=== PATIENT | female | born 1990 | race Caucasian/White ===

== ENCOUNTER 2024-01-20 20:02 | Emergency (ER) | payer SELFPAY ==
[2024-01-20 20:08] VITALS: BP 111/73
--- NOTE | 2024-01-20 20:55 | ED.MUSCINJ ---
HPI-Injury
General
Chief Complaint: Extremity Pain (non-traumatic)
Source: patient
Exam Limitations: none
Time Seen by Provider: 01/20/24 20:29
Nursing documentation reviewed up to this point in time: agreed with
History of Present Illness-Injury
Initial Injury comments:
33-year-old female presents with right foot pain. She rolled her ankle prior to arrival. Painful to ambulate. Denies head injury or loss of consciousness.
Past History
Past History
ED Past Medical History: None; Negative Asthma, HTN, Hypercholesterolemia or [place]
ED Past Surgical History: Other (Hernia)
Social History
Tobacco: Non-smoker
Alcohol: None
Personal:
Living: with family
Musculoskeletal Injury Exam
Musculoskeletal Injury Exam
Right Foot:
Pain with Movement?: Mild
Tender to palpation?: Moderate
Soft tissue swelling?: Moderate
External deformity and angulation?: None
Joint effusion?: Moderate
Contusion?: Moderate
Hematoma-local bleeding into tissue?: Moderate
Strain- Sprain- Tear (Connective tissue injury)?: Mild
Crepitus with movement?: No
Range of motion: Limited
Distal skin color and temperature: normal-warm & good color
Capillary Refill: normal
Phy Exam
General Physical Exam
General Presentation: well appearing
General Skin: warm and dry
General Habitus: normal
Pulmonary Exam
Pulmonary Exam: lungs clear and no respiratory distress
Neurological Exam
Neurological Exam: alert and oriented x3
Musculoskeletal Exam
Musculoskeletal Exam: full ROM, neuro vasc intact and other (See focused physical examination)
Injury Course
Orders/Labs/Results
Orders:
Orders
01/20/24 20:07
Ankle, Right 3 view CR [CR Ankle - Right Min 3 Views *] Urgent
Comment:
Reason For Exam: pain
CR Foot - Right Min 3 Views Urgent
Comment:
Reason For Exam: pain
01/20/24 20:57
boot [Ortho Boot Right- Treatment] ONCE
Short or tall?: Tall
*Critical Care Note
Total Time (30-74mins, 75-104mins- exclusive of procedures): Not Applicable
ED Attending Note
-
Portions of this chart may have been created with voice recognition software.� Occasional wrong word or��sound alike� substitutions may have occurred due to the inherent limitations of voice recognition software.
Discharge Plan
Departure
Patient Disposition: Home (Routine Discharge)
Date of Disposition: 01/20/24
Time of Disposition: 21:12
Patient with high blood pressure during this ER visit?: Yes
Condition: Good
Discharge Problem:
Foot fracture, right
Instructions: Foot Fracture (DC)
Prescriptions:
No Action
pantoprazole [Protonix] 40 mg tablet,delayed release (DR/EC)
40 mg PO DAILY Qty: 10 0RF
Referrals:
Adithya Salamanca MD [Active] - Call in 1-3 days for appt
Activity Restrictions/Additional Instructions:
It was a pleasure meeting you and taking part in your care. We hope for your continued healing and wellness.
Please read discharge instructions in their entirety. However, they are for general education and may not describe your exact diagnosis at discharge. Information on your ER visit and medical conditions were discussed with you along with appropriate
follow up information...
If indicated, please take your medications as instructed and indicated on discharge paperwork.
Please schedule a follow up appointment as directed. Call to schedule an appointment
Please return to the emergency department with ANY change in, persisting, or worsening of symptoms. If any of your symptoms do not improve, or persist, or become more severe within 6-12 hours, please return to the emergency department for further
care.
Please return to the emergency department if you develop a headache, neck pain/stiffness, fever greater than 100.4F, chest pain, shortness of breath, persistent nausea, vomiting, slurred speech, difficulty walking, numbness/tingling, weakness, signs
of infection or any other symptoms that are worrisome to you.
If you have any questions or concerns please do not hesitate to call the Hospital at or E-mail me directly at [email or web address]
Interventions
Interventions:
*Risk Screen - Suicide Last Done: 01/20/24 21:00
*General Assessment Last Done: 01/20/24 21:00
*Neglect/Abuse Screening Last Done: 01/20/24 21:00
ED- Fall Risk Assessment Last Done: 01/20/24 21:00
*ED COVID-19 Vaccine History Last Done: 01/20/24 21:00
*Nursing Disposition Last Done: 01/20/24 22:04
ED-Skin Assessment Last Done: 01/20/24 21:00
ED-Peripheral Vascular Assessment Last Done: 01/20/24 21:00
ED-Musculoskeletal Assessment Last Done: 01/20/24 21:00
Discharge Date and Time
Discharge Date/Time: 01/20/24 22:08
Print Language: COMORAN
== END 2024-01-20 22:08 | disposition home or self-care (01) ==
LOC: EMR 20:02
PROVIDERS: EMERGENCY PHYSICIAN Student in an Organized Health Care Education/Training Program; FAMILY PHYSICIAN Nurse Practitioner Adult Health
DX: S92.901A Unspecified fracture of right foot, initial encounter for closed fracture (principal); S90.31XA Contusion of right foot, initial encounter; X50.1XXA Overexertion from prolonged static or awkward postures, initial encounter
CPT/HCPCS: 99283; 29515; 73610; 73630

== ENCOUNTER → 2024-04-17 13:58 | Emergency (ER) | payer OTHER, SELFPAY ==
[2024-04-17 14:07] VITALS: BP 101/67
--- NOTE | 2024-04-17 14:07 | ED.GENMED ---
ED Provider Triage
<Olivia Estrada PA-C - Last Filed: 04/17/24 14:12>
-
Patient seen by provider in Triage?: Seen in Triage
Attestation: A medical screening examination has been initiated by a qualified medical provider. Based on the assessment performed at this time, it has been determined that an emergent medical condition may exist and the patient has been informed
that further medical evaluation and possible additional diagnostic testing may be needed.
HPI: 33yoF here with RLQ pain x 1 day. Worried about appendicitis. Otherwise asymptomatic. No fevers or urinary symptoms.
GENERAL: Alert , in no apparent distress
EYE: No visual abnormalities.
NECK: Trachea midline
ENT: No visible abnormalities.
LUNGS: No acute respiratory distress
NEUROLOGICAL: Alert and oriented
SKIN: Skin intact. No visible changes.
MUSCULOSKELETAL: Moving extremities normally
PSYCH: Normal and appropriate interaction.
This is a medical evaluation conducted in person to initiate diagnostic evaluation and provide initial therapeutics. Please see further documentation by the treating clinician.
RLQ tenderness on exam. Abdominal labs, HCG, and CT abdomen added.
History of Present Illness
<Olivia Estrada PA-C - Last Filed: 04/17/24 14:12>
General
Chief Complaint: Abdominal Pain
Time Seen by Provider: 04/17/24 15:54
<Lisa Guillen NP - Last Filed: 04/17/24 17:46>
General
Source: patient
Exam Limitations: none
Nursing documentation reviewed up to this point in time: agreed with
History of Present Illness
History of Present Illness:
Patient to ED with complaint of right sided abdominal pain. States pain started last PM, continues today. Denies fever/chills, n/v/d. No urinary symptoms. No prior history of same. Brought self to ED for eval.
Past History
<Olivia Estrada PA-C - Last Filed: 04/17/24 14:12>
Past History
ED Past Medical History: None; Negative Asthma, HTN, Hypercholesterolemia or [place]
ED Past Surgical History: Other (Hernia)
Social History
Tobacco: Non-smoker
Alcohol: None
Personal:
Living: with family
Review of Systems
<Lisa Guillen NP - Last Filed: 04/17/24 17:46>
Review of Systems
Allergies reviewed?: Yes
All Other Systems: ROS reviewed and negative except as documented in HPI and ROS
Constitutional: Reports no symptoms
EENT: Reports no symptoms
Respiratory: Reports no symptoms
Cardiac: Reports no symptoms
ABD/GI: Reports abdominal pain (right sided abdominal pain)
: Reports no symptoms
Musculoskeletal: Reports no symptoms
Skin: Reports no symptoms
Neurological: Reports no symptoms
Psychiatric: Reports no symptoms
Phy Exam
<Lisa Guillen NP - Last Filed: 04/17/24 17:46>
General Physical Exam
General Presentation: well appearing and no apparent distress
General age: appears stated age
General Skin: warm and dry
General Habitus: normal
General Mental: alert
Cardiovascular Exam
Cardiovascular Exam: regular rate/rhythm and no edema
Pulmonary Exam
Pulmonary Exam: lungs clear and no respiratory distress
Gastrointestinal Exam
Gastrointestinal Exam: normal bowel sounds, soft, no organomegaly, non distended and no cva tenderness
Palpation: left upper quadrant: No tenderness, left lower quadrant: No tenderness, right upper quadrant: Mild tenderness and right lower quadrant: Mild tenderness
Musculoskeletal Exam
Musculoskeletal Exam: full ROM and neuro vasc intact
Skin Exam
Skin Exam: normal color, warm/dry and no rash
Psychiatric Exam
Psychiatric Exam: normal mood/affect
Course
<Olivia Estrada PA-C - Last Filed: 04/17/24 14:12>
Orders/Labs/Results
Orders:
Orders
04/17/24 14:09
CT Abd/pelvis W Iv Cont Urgent
Comment:
Reason For Exam: RLQ pain
Test Result ONCE
04/17/24 14:15
Complete Blood Count/With Diff Urgent
Comprehensive Metabolic Panel Urgent
HCG, Serum Qualitative Screen Urgent
Lipase Urgent
Abnormal Lab Results
04/17/24
14:15
Potassium 5.3 H mmol/L
(3.5-5.1)
Total Bilirubin < 0.1 L mg/dl
(0.2-1.3)
04/17/24 14:15
04/17/24 14:15
Vital Signs
Initial and Last Documented VS:
Initial Vital Signs
Temp Pulse Resp BP Pulse Ox
99.2 F 80 18 101/67 98
04/17/24 14:07 04/17/24 14:07 04/17/24 14:07 04/17/24 14:07 04/17/24 14:07
Last Documented Vital Signs
Temp Pulse Resp BP Pulse Ox
99.2 F 56 18 114/74 98
04/17/24 14:07 04/17/24 17:40 04/17/24 17:40 04/17/24 17:40 04/17/24 17:40
<Lisa Guillen EFFICIENCY ENGINEER - Last Filed: 04/17/24 17:46>
Orders/Labs/Results
Orders:
Orders
04/17/24 14:09
CT Abd/pelvis W Iv Cont Urgent
Comment:
Reason For Exam: RLQ pain
Test Result ONCE
04/17/24 14:15
Complete Blood Count/With Diff Urgent
Comprehensive Metabolic Panel Urgent
HCG, Serum Qualitative Screen Urgent
Lipase Urgent
Abnormal Lab Results
04/17/24
14:15
Potassium 5.3 H mmol/L
(3.5-5.1)
Total Bilirubin < 0.1 L mg/dl
(0.2-1.3)
04/17/24 14:15
04/17/24 14:15
Vital Signs
Initial and Last Documented VS:
Initial Vital Signs
Temp Pulse Resp BP Pulse Ox
99.2 F 80 18 101/67 98
04/17/24 14:07 04/17/24 14:07 04/17/24 14:07 04/17/24 14:07 04/17/24 14:07
Last Documented Vital Signs
Temp Pulse Resp BP Pulse Ox
99.2 F 56 18 114/74 98
04/17/24 14:07 04/17/24 17:40 04/17/24 17:40 04/17/24 17:40 04/17/24 17:40
<Lisa Guillen NP - Last Filed: 04/17/24 17:46>
MDM/Problems Addressed
Differential Diagnosis Includes:
Patient to ED with complaint of right sided abd. pain x 24 hours. No fever/chills,n/v/d. Pain is constant, does not radiate. Labs unremarkable. Ct: right ovarian cyst, normal appendix. She is disharged home and will follow up with PCP. Given
instructions on s/s to return to ED and she is agreeable to plan. Differential includes but not limited to: appendicitis, cholecystitis, hernia, ovarian cyst, ovarian torsion
<Lisa Guillen NP - Last Filed: 04/17/24 17:46>
*Radiology
Radiology exam reviewed: radiology read reviewed
*Pulse Oximetry
Patient hypoxic: no
*Critical Care Note
Total Time (30-74mins, 75-104mins- exclusive of procedures): Not Applicable
ED Attending Note
<Olivia Estrada PA-C - Last Filed: 04/17/24 14:12>
-
Portions of this chart may have been created with voice recognition software.� Occasional wrong word or��sound alike� substitutions may have occurred due to the inherent limitations of voice recognition software.
Discharge Plan
Departure
Patient Disposition: Home (Routine Discharge)
Date of Disposition: 04/17/24
Time of Disposition: 17:16
Patient with high blood pressure during this ER visit?: No
Condition: Good
Covid-19: Not Applicable
Discharge Problem:
Ovarian cyst
Instructions: Ovarian Cyst (DC)
Prescriptions:
No Action
pantoprazole [Protonix] 40 mg tablet,delayed release (DR/EC)
40 mg PO DAILY Qty: 10 0RF
Referrals:
Bian Irving NP [Family Provider] -
Activity Restrictions/Additional Instructions:
Call you steaming machine operator to schedule a follow up appointment.
Interventions
Interventions:
*Risk Screen - Suicide Last Done: 04/17/24 14:10
*General Assessment Last Done: 04/17/24 14:10
*Neglect/Abuse Screening Last Done: 04/17/24 14:10
*ED COVID-19 Vaccine History Last Done: 04/17/24 15:21
PN-Votwqk-Jwskxtvltl Assessment Last Done: 04/17/24 15:21
Discharge Date and Time
Print Language: CZECH
[2024-04-17 14:31] LABS: % Basophils 0.3 % (0-2); % Eosinophils 1.5 % (0-6); % Immature Granulocytes 0.3 % (0-0.5); % Lymphocytes 39.1 % (20.5-51.1); % Monocytes 6.1 % (1.7-9.3); % Neutrophils 52.7 % (42.2-75.2); Absolute Eosinophils 0.1 10^3/uL (0-0.7); Absolute Lymphocytes 2.8 10^3/uL (1.2-3.4); Absolute Monocytes 0.4 10^3/uL (0.1-0.6); Absolute Neutrophils 3.8 10^3/uL (1.4-6.5); Hematocrit 41.5 % (37.0-47.0); Hemoglobin 13.9 g/dL (12.0-16.0); Mean Corp Hgb Conc. 33.5 g/dL (33.0-37.0); Mean Corpuscular Hgb 29.5 pg (27.0-31.0); Mean Corpuscular Volume 88.1 fL (81.0-99.0); Nucleated Red Blood Cells % 0 %; Platelet Count 285 10^3/uL (130-400); Red Blood Cell Count 4.71 10^6/uL (4.20-5.40); Red Cell Dist. Width 12.7 % (11.5-14.5); White Blood Cell Count 7.2 10^3/uL (4.8-10.8)
[2024-04-17 14:51] LABS: HCG, Serum Qualitative Screen Negative
[2024-04-17 14:53] LABS: ALT (SGPT) 16 U/L (0-35); AST (SGOT) 26 U/L (14-36); Albumin 4.9 g/dl (3.5-5.0); Alkaline Phosphatase 43 U/L (38-126); Blood Urea Nitrogen 16 mg/dl (7-17); Calcium 10.2 mg/dl (8.4-10.2); Carbon Dioxide 28 mmol/L (22-30); Chloride 102 mmol/L (98-107); Glucose 98 mg/dl (70-99); Potassium 5.3 mmol/L (3.5-5.1); Sodium 141 mmol/L (135-145); Total Bilirubin < 0.1 mg/dl (0.2-1.3); Total Protein 7.7 g/dl (6.3-8.2); eGFR > 60.00
[2024-04-17 14:54] LABS: Lipase 210 U/L (23-300)
[2024-04-17 17:40] VITALS: BP 114/74
== END | disposition home or self-care (01) ==
LOC: EMR 13:58
PROVIDERS: Physician Assistant; EMERGENCY PHYSICIAN Emergency Medicine; FAMILY PHYSICIAN Nurse Practitioner Adult Health
DX: N83.201 Unspecified ovarian cyst, right side (principal)
CPT/HCPCS: 99285; 74177; 80053; 83690; 84703; 85025; Q9967